=== PATIENT | male | born 1970 | race African-American/Black ===

== ENCOUNTER 2024-03-31 15:11 | Outpatient (CLI) | payer OTHER ==
[2024-03-31 16:17] LABS: #Basophils 0.04 10x3/uL (0.0-0.2); #Eosinphils 0.15 10x3/uL (0.0-0.5); #Monocytes 0.69 10x3/uL (0.0-1.1); #Neutrophils 5.04 10x3/uL (1.5-8.4); %Basophils 0.6 % (0.0-2.0); %Eosinophils 2.1 % (0.0-6.0); %Lymphocytes 15.6 % (18.0-47.0); %Monocytes 9.8 % (0.0-10.0); %Neutrophils 71.3 % (40.0-75.0); Hematocrit 39.8 % (38.8-50.0); Hemoglobin 13.1 g/dL (13.5-17.5); Mean Corpuscular HGB CONC 32.9 g/dL (32.0-36.0); Mean Corpuscular Hemoglobin 28.6 pg (27.0-33.0); Mean Corpuscular Volume 86.9 fl (81.2-95.1); Mean Platelet Volume 12.1 fl (7.4-10.4); Platelet Count 165 10x3/uL (150-450); RBC Distribution Width 13.1 % (11.5-14.5); Red Blood Cell (RBC) Count 4.58 10x6/uL (4.32-5.72); White Blood Cell (WBC) Count 7.1 10x3/uL (3.5-10.5)
[2024-03-31 16:33] LABS: Anion Gap 12 mmol/L (10-20); BUN (Urea Nitrogen) 15 mg/dL (8.4-25.7); Calc. Creatinine Clearance 0 mL/min (70-130); Calcium 9.2 mg/dL (7.8-10.44); Carbon Dioxide 26 mmol/L (22-29); Chloride 108 mmol/L (98-107); Estimated GFR 71; Glucose 107 mg/dL (70-105); Potassium 3.9 mmol/L (3.5-5.1); Sodium 142 mmol/L (136-145)
== END 2024-03-31 15:12 | disposition home or self-care (01) ==
LOC: LABBT 15:11
PROVIDERS: ATTEND Surgery
DX: Z01.812 Encounter for preprocedural laboratory examination (principal); K43.9 Ventral hernia without obstruction or gangrene; M79.89 Other specified soft tissue disorders
CPT/HCPCS: 80048; 85025